=== PATIENT | female | born 1980 | race Caucasian/White ===

== ENCOUNTER 2025-03-25 18:08 | Inpatient (IN) | payer BC ==
[~2025-03-25] VITALS: Ht 167.6 cm; Wt 49.9 kg
[2025-03-25 19:02] LABS: PLATELET COUNT (AUTO) 531 K/uL (150-450); RED BLOOD CELL COUNT(AUTO) 2.61 MIL/uL (4.0-5.2); RED CELL DISTRIBUTION WIDTH 27.6 % (11.5-15.0); WHITE BLOOD COUNT (AUTO) 8.5 K/uL (4.3-11.0)
[2025-03-25 19:04] LABS: CALCIUM, SERUM 9.2 mg/dL (8.5-10.1); CREATININE 0.5 mg/dL (0.6-1.3); SODIUM SERUM 133.0 mmol/L (136-145); UREA NITROGEN, BLOOD 13.0 mg/dL (7-18)
[2025-03-25] MEDS: IV NS 0.9% 500 ML BAG IV ONE (19:05)
[2025-03-25 19:07] LABS: INR 1.2 (0.91-1.10)
[2025-03-25 19:09] LABS: ASPARTATE AMINOTRANSFERASE 243.0 U/L (15-37); TOTAL PROTEIN, SERUM 7.5 g/dL (6.4-8.2)
[2025-03-25] MEDS ORDERED: SODI650T PO (19:28)
[2025-03-25] MEDS ORDERED: PANT40TA49 PO (19:28)
[2025-03-25] MEDS ORDERED: HYDR-3980 PO (19:28)
[2025-03-25] MEDS ORDERED: FURO40TA5 PO (19:28)
[2025-03-25] MEDS ORDERED: FERR325T6 PO (19:28)
[2025-03-25] MEDS ORDERED: NAPH1POW3 PO (19:28)
[2025-03-25] MEDS ORDERED: THIA100T88 PO (19:28)
[2025-03-25] MEDS ORDERED: HYDROCODONE/APAP 10/325MG TABLET ONE (20:15)
[2025-03-25] MEDS: HYDROCODONE/APAP 10/325MG TABLET PO ONE (20:18)
[2025-03-25] MEDS ORDERED: ONDANSETRON HCL/PF 4 MG/2 ML VIAL IVP PRN (20:30)
[2025-03-25] MEDS ORDERED: Z GUARD REMEDY 4 OZ OINT TP PRN (20:30)
[2025-03-25] MEDS ORDERED: ACETAMINOPHEN 325 MG TABLET PO PRN (20:30)
[2025-03-25] MEDS ORDERED: MAG HYDROX/AL HYDROX/SIMETH 30 ML UDC PO PRN (20:30)
[2025-03-25] MEDS ORDERED: MORPHINE SULFATE INJ 2 MG/ML DISP.SYRIN IV PRN (20:30)
[2025-03-25] MEDS ORDERED: MAGNESIUM HYDROXIDE 30 ML UDC PO PRN (20:30)
[2025-03-25 20:38] LABS: LYMPHOCYTES % (MANUAL) 9 % (16-48); MONOCYTES % (MANUAL) 7 % (0-11.0); NEUTROPHILS % (MANUAL) 84 (42-76); PLATELET ESTIMATE INCREASED
[2025-03-25 21:39] LABS: IRON, SERUM 79 ug/dl (50-175)
[2025-03-25 21:45] VITALS: BP 104/69; TEMP 97.9; O2SAT 100
[2025-03-25 22:00] VITALS: BP 103/73; TEMP 97.9; O2SAT 99
[2025-03-25 22:30] VITALS: BP 103/73; TEMP 97.5; O2SAT 99
[2025-03-25 23:00] VITALS: BP_SYST 106; BP_SYST 109; BP_DIAS 70; BP_DIAS 74; TEMP 97.5; O2SAT 100
[2025-03-25 23:30] VITALS: BP 106/74; TEMP 97.5; O2SAT 100
[2025-03-26] MEDS: HYDROCODONE/APAP 5/325MG TABLET PO PRN (00:10)
[2025-03-26] MEDS: HYDROCODONE/APAP 5/325MG TABLET PO ONE (02:54)
[2025-03-26 04:00] VITALS: BP 101/71; TEMP 97.9; O2SAT 96
[2025-03-26] MEDS: PANTOPRAZOLE 40 MG TABLET.DR PO SCH (07:33)
[2025-03-26 07:49] LABS: PLATELET COUNT (AUTO) 471 K/uL (150-450); RED BLOOD CELL COUNT(AUTO) 2.77 MIL/uL (4.0-5.2); RED CELL DISTRIBUTION WIDTH 24.4 % (11.5-15.0); WHITE BLOOD COUNT (AUTO) 8.0 K/uL (4.3-11.0)
[2025-03-26 08:00] VITALS: BP 105/71; TEMP 97.9; O2SAT 100
[2025-03-26 08:10] LABS: CALCIUM, SERUM 9.2 mg/dL (8.5-10.1); CREATININE 0.5 mg/dL (0.6-1.3); PHOSPHORUS 2.3 mg/dL (2.5-4.9); SODIUM SERUM 139.0 mmol/L (136-145); UREA NITROGEN, BLOOD 11.0 mg/dL (7-18)
[2025-03-26 09:06] VITALS: BP 105/71; TEMP 97.9; O2SAT 100
[2025-03-26] MEDS: THIAMINE HCL 100 MG TABLET PO SCH (09:10)
[2025-03-26 09:52] LABS: EOSINOPHILS % (MANUAL) 1 % (0-4); LYMPHOCYTES % (MANUAL) 9 % (16-48); MONOCYTES % (MANUAL) 7 % (0-11.0); NEUTROPHILS % (MANUAL) 83 (42-76); PLATELET ESTIMATE INCREASED
[2025-03-26 16:00] VITALS: BP 104/75; TEMP 97.9; O2SAT 99
[2025-03-26] MEDS: NEUTRA PHOS 1 POWD.PACKET PO SCH (16:21)
[2025-03-26] MEDS ORDERED: IVERMECTIN PO (16:43)
[2025-03-26 20:00] VITALS: BP 106/70; TEMP 97.9; O2SAT 98
[2025-03-27] VITALS (10 sets, daily range): BP systolic 99–118; BP diastolic 64–96; TEMP 97.5–97.9; O2SAT 96–97
[2025-03-27 07:57] LABS: CALCIUM, SERUM 9.5 mg/dL (8.5-10.1); CREATININE 0.6 mg/dL (0.6-1.3); PHOSPHORUS 2.1 mg/dL (2.5-4.9); SODIUM SERUM 139.0 mmol/L (136-145); UREA NITROGEN, BLOOD 10.0 mg/dL (7-18)
[2025-03-27 08:20] LABS: PLATELET COUNT (AUTO) 483 K/uL (150-450); RED BLOOD CELL COUNT(AUTO) 2.84 MIL/uL (4.0-5.2); RED CELL DISTRIBUTION WIDTH 24.9 % (11.5-15.0); WHITE BLOOD COUNT (AUTO) 9.0 K/uL (4.3-11.0)
[2025-03-27 10:41] LABS: EOSINOPHILS % (MANUAL) 1 % (0-4); LYMPHOCYTES % (MANUAL) 3 % (16-48); MONOCYTES % (MANUAL) 10 % (0-11.0); NEUTROPHILS % (MANUAL) 86 (42-76); PLATELET ESTIMATE INCREASED
[2025-03-27] MEDS: HYDROCODONE/APAP 10/325MG TABLET PO PRN (15:25)
[2025-03-28] MEDS ORDERED: FERROUS SULFATE (325 MG) 325 MG/TAB TABLET PO SCH (09:00)
== END 2025-03-27 22:00 | disposition home health service (06) | DRG 73 ==
LOC: ER 18:15 → TELE 20:59 → MED 03-26 10:35
PROVIDERS: ATTEND Student in an Organized Health Care Education/Training Program
PROC: 30233N1 Transfusion of Nonautologous Red Blood Cells into Peripheral Vein, Percutaneous Approach (ICD-10-PCS; principal; 2025-03-25)
DX: G90.89 Other disorders of autonomic nervous system (principal); E43 Unspecified severe protein-calorie malnutrition; C78.7 Secondary malignant neoplasm of liver and intrahepatic bile duct; C79.51 Secondary malignant neoplasm of bone; R64 Cachexia; R18.8 Other ascites; J90 Pleural effusion, not elsewhere classified; E88.09 Other disorders of plasma-protein metabolism, not elsewhere classified; C18.9 Malignant neoplasm of colon, unspecified; D50.9 Iron deficiency anemia, unspecified; E87.1 Hypo-osmolality and hyponatremia; Z68.1 Body mass index [BMI] 19.9 or less, adult; J98.11 Atelectasis; E86.0 Dehydration; Z79.899 Other long term (current) drug therapy; R79.89 Other specified abnormal findings of blood chemistry; M25.552 Pain in left hip; M25.551 Pain in right hip; M79.662 Pain in left lower leg; M79.661 Pain in right lower leg; D75.839 Thrombocytosis, unspecified; E86.9 Volume depletion, unspecified; Z51.5 Encounter for palliative care
CPT/HCPCS: 36415; 70450-TC; 71045-TC; 73502; 76700-TC; 80048-TC; 80076-TC; 82728-TC; 83540-TC; 83735-TC; 84100-TC; 85025-TC; 85027-TC; 85730-TC; 86850-TC; 93307-TC; 93970-TC; 97110-TC; 97116-TC; 97530-TC; 97535-TC; G0378; J7040; J7060; P9016